=== PATIENT | male | born 1995 | race Asian ===

== ENCOUNTER 2018-12-02 10:03 | Emergency (ER) | payer OTHER ==
[~2018-12-02] VITALS: Ht 165.1 cm; Wt 61.6 kg
--- NOTE | 2018-12-02 10:29 | NUR ---
RADHA ARAUJO AT BEDSIDE. PT AO X 4. SKIN PWD. RESP EVEN AND UNALBORED. PT REPORTS FEELING BETTER AT THIS TIME FROM PREVIOUS VISIT AND REPORTS USING IS INCENTIVE SPIROMETER.
--- NOTE | 2018-12-02 10:50 | NUR ---
PT REPORT FROM MARY FLOWERS. PT CARE TO BE ASSUMED.
--- NOTE | 2018-12-02 10:57 | NUR ---
REPORT TO MARY PEREZ WHO ASSUMED CARE OF PT.
--- NOTE | 2018-12-02 10:59 | NUR ---
DR ARAUJO BS TO DISCUSS POC
[2018-12-02 11:12] VITALS: BP 110/74
== END 2018-12-02 11:14 | disposition home or self-care (01) ==
LOC: ED 11:00
DX: Z48.00 Encounter for change or removal of nonsurgical wound dressing (principal)
CPT/HCPCS: 71046; 99283